=== PATIENT | male | born 1935 | race Caucasian/White ===

== ENCOUNTER 2016-09-10 04:23 | Emergency (ER) | payer OTHER, BC ==
[~2016-09-10] VITALS: Ht 170.2 cm; Wt 91.5 kg
[~2016-09-10 04:23] MED LIST: ALPHAGAN P100 DROP/1 LEFT EYE; CALCIUM500 M4 PO; LIPITOR20 MG PO; LISINOPRIL10 MG PO; OSTEO BI-FLEX1 EAC3 PO; TRAMADOL HCL50 MG PO; VITAMIN D400 UNI1 PO; WARFARIN SODIUM4 MG PO; XALATAN2.5 ML BOTH EYES
[2016-09-10 05:33] LABS: MCH 31.6 PG (29.0-34.0); MCV 92.7 FL (86-99); MEAN PLAT.VOLUME 9.8 uM^3 (9.0-12.4); PLATELET COUNT 159 K/uL (156-360); RBC DIS.WIDTH-CV 12.9 % (11.8-14.6); RBC DIS.WIDTH-SD 43.9 % (39-53); RED BLOOD COUNT 4.53 M/uL (4.00-5.50); WHITE BLOOD COUNT 7.7 K/uL (4.1-10.2)
[2016-09-10 05:37] LABS: INTER. NORMALIZED RATIO 2.2; PROTHROMBIN TIME 22.6 (9.2-11.2)
[2016-09-10 06:17] VITALS: BP 137/83
== END 2016-09-10 06:17 | disposition home or self-care (01) ==
LOC: EME → EDBD 04:23 → EME 06:17
PROVIDERS: Physician Assistant
PROC: 2Y41X5Z Packing of Nasal Region using Packing Material (ICD-10-PCS; principal; 2016-09-10)
DX: R04.0 Epistaxis (principal); I10 Essential (primary) hypertension; Z79.01 Long term (current) use of anticoagulants; F32.9 Major depressive disorder, single episode, unspecified; Z87.891 Personal history of nicotine dependence; Z88.2 Allergy status to sulfonamides; Z88.8 Allergy status to other drugs, medicaments and biological substances
CPT/HCPCS: 85027; 85610; 99281; 99283

== ENCOUNTER 2016-11-24 19:18 | Inpatient (IN) | payer OTHER, BC ==
[~2016-11-24] VITALS: Ht 170.2 cm; Wt 92.6 kg
[~2016-11-24 19:18] MED LIST changes: -LISINOPRIL10 MG PO; +LISINOPRIL5 MG PO; -VITAMIN D400 UNI1 PO; +VITAMIN D400 UNIT PO
[2016-11-24 20:22] LABS: BASOPHIL COUNT 0.1 K/uL (0-0.1); EOSINOPHIL (%) 0.7 % (0-5); EOSINOPHIL COUNT 0.1 K/uL (0-0.3); HEMATOCRIT 41.9 % (38.0-50.0); IMMATURE GRANULOCYTE (%) 0.3 % (0.0-0.7); INSTRUMENT ABS NEUTROPHIL CT 10.6 K/uL; LYMPHOCYTE COUNT 0.8 K/uL (1.0-2.8); MCH 31.8 PG (29.0-34.0); MCHC 34.1 G/DL (30.0-36.0); MCV 93.3 FL (86-99); MEAN PLAT.VOLUME 9.7 uM^3 (9.0-12.4); MONOCYTE (%) 6.1 % (3-12); MONOCYTE COUNT 0.8 K/uL (0-0.8); NEUTROPHIL (%) 86.1 % (45-76); NEUTROPHIL COUNT 10.6 K/uL (1.8-6.4); PLATELET COUNT 169 K/uL (156-360); RBC DIS.WIDTH-CV 12.3 % (11.8-14.6); RBC DIS.WIDTH-SD 42.5 % (39-53); RED BLOOD COUNT 4.49 M/uL (4.00-5.50); WHITE BLOOD COUNT 12.3 K/uL (4.1-10.2)
[2016-11-24 20:30] LABS: INTER. NORMALIZED RATIO 2.8; PROTHROMBIN TIME 31.6 SEC (10.2-12.9)
[2016-11-24 20:33] LABS: CHLORIDE 100 mEq/L (99-109); POTASSIUM 4.3 mEq/L (3.7-5.4); SODIUM 138 mEq/L (136-147)
[2016-11-24 20:35] LABS: GLUCOSE 199 mg/dL (70-99)
[2016-11-24 20:36] LABS: ANION GAP 11 MEQ/L (2-14)
[2016-11-24 20:37] LABS: TOTAL BILIRUBIN 0.4 mg/dL (0.0-1.0)
[2016-11-24 20:38] LABS: ALKALINE PHOSPHATASE 58 IU/L (3-129)
[2016-11-24 20:39] LABS: GFR ESTIMATE (CALCULATED) > 59 mL/min/
[2016-11-24 20:40] LABS: UREA NITROGEN (BUN) 19 mg/dL (9-23)
[2016-11-24] MEDS ORDERED: FISH OIL 1,0001 EAC7 PO (22:08)
[2016-11-24] MEDS ORDERED: OSTEO BI-FLEX1 EAC2 PO (22:08)
[2016-11-25] VITALS (7 sets, daily range): BP systolic 124–165; BP diastolic 63–87
[2016-11-25 07:17] LABS: Estimated Average Glucose 108 mg/dL (70-123); HEMOGLOBIN A1c (GLYCOHEMOGLOB) 5.4 % HGB (Below 5.7)
[2016-11-25 08:28] LABS: HEMATOCRIT 39.8 % (38.0-50.0); MCV 94.5 FL (86-99)
[2016-11-25 12:08] LABS: POINT-OF-CARE METER ID UU14188577
[2016-11-25 14:19] LABS: HEMATOCRIT 40.9 % (38.0-50.0); MCV 94.2 FL (86-99)
[2016-11-25 17:01] LABS: POINT-OF-CARE METER ID UU14188577
[2016-11-25 19:43] LABS: HEMATOCRIT 41.7 % (38.0-50.0); MCV 93.9 FL (86-99)
[2016-11-26 03:40] VITALS: BP 164/83
[2016-11-26 06:52] LABS: HEMATOCRIT 44.6 % (38.0-50.0); MCH 31.8 PG (29.0-34.0); MCHC 33.9 G/DL (30.0-36.0); MCV 93.9 FL (86-99); PLATELET COUNT 168 K/uL (156-360); RBC DIS.WIDTH-CV 12.4 % (11.8-14.6); RBC DIS.WIDTH-SD 43.2 % (39-53); RED BLOOD COUNT 4.75 M/uL (4.00-5.50); WHITE BLOOD COUNT 8.3 K/uL (4.1-10.2)
[2016-11-26 07:01] LABS: INTER. NORMALIZED RATIO 1.9; PROTHROMBIN TIME 20.9 SEC (10.2-12.9)
[2016-11-26 07:10] VITALS: BP 145/71
[2016-11-26 07:21] LABS: ANION GAP 9 MEQ/L (2-14); CHLORIDE 106 MEQ/L (99-109); GFR ESTIMATE (CALCULATED) > 59 mL/min/; POTASSIUM 4.1 MEQ/L (3.7-5.4); SAMPLE HEMOLYSIS CHECK 0; SAMPLE ICTERIC CHECK 0; SAMPLE LIPEMIA CHECK 0; SODIUM 140 MEQ/L (136-147); UREA NITROGEN (BUN) 9 mg/dL (9-23)
[2016-11-26 07:24] LABS: GLUCOSE 82 mg/dL (70-99)
[2016-11-26 11:15] VITALS: BP 138/70
[2016-11-26] MEDS ORDERED: NEXIUM40 MG PO (15:09)
== END 2016-11-26 17:45 | disposition home or self-care (01) | DRG 378 ==
LOC: EME 19:18 → EDOF 23:07 → ENRESERV 23:08 → EDOF 11-25 00:17 → 3EAST 11-25 00:17 → EDOF 11-25 00:17 → CANRESERV 11-25 00:18 → ENRESERV 11-25 00:18 → 3EAST 11-25 01:42
PROVIDERS: Emergency Medicine; Hospitalist; Internal Medicine; Physician Assistant
PROC: 0DJ08ZZ Inspection of Upper Intestinal Tract, Via Natural or Artificial Opening Endoscopic (ICD-10-PCS; principal; 2016-11-26)
DX: K29.71 Gastritis, unspecified, with bleeding (principal); K44.9 Diaphragmatic hernia without obstruction or gangrene; R73.9 Hyperglycemia, unspecified; D72.829 Elevated white blood cell count, unspecified; I48.91 Unspecified atrial fibrillation; I48.92 Unspecified atrial flutter; I10 Essential (primary) hypertension; R42 Dizziness and giddiness; E78.5 Hyperlipidemia, unspecified; M10.9 Gout, unspecified; M19.90 Unspecified osteoarthritis, unspecified site; F32.9 Major depressive disorder, single episode, unspecified; E66.9 Obesity, unspecified; Z68.31 Body mass index [BMI] 31.0-31.9, adult; Z95.0 Presence of cardiac pacemaker; Z79.01 Long term (current) use of anticoagulants; Z82.49 Family history of ischemic heart disease and other diseases of the circulatory system; Z86.718 Personal history of other venous thrombosis and embolism; Z87.891 Personal history of nicotine dependence; Z86.711 Personal history of pulmonary embolism
CPT/HCPCS: 80048; 80053; 82948; 83036; 85014; 85018; 85025; 85027; 85610; 90686; 93005; 99281; 99285; C9113; G0378; J7030

== ENCOUNTER 2017-08-21 08:06 | Observation (INO) | payer OTHER, BC ==
[~2017-08-21] VITALS: Ht 170.2 cm; Wt 81.2 kg
[~2017-08-21 08:06] MED LIST changes: +FISH OIL 1,0001 EAC7 PO; +NEXIUM40 MG PO; +OSTEO BI-FLEX1 EAC2 PO
[2017-08-21 08:52] LABS: BASOPHIL (%) 0.7 % (0-1); BASOPHIL COUNT 0.1 K/uL (0-0.1); EOSINOPHIL (%) 2.5 % (0-5); EOSINOPHIL COUNT 0.3 K/uL (0-0.3); HEMATOCRIT 33.4 % (38.0-50.0); HEMOGLOBIN 11.2 G/DL (12.5-16.6); IMMATURE GRANULOCYTE (%) 0.7 % (0.0-0.7); LYMPHOCYTE (%) 7.3 % (15-42); LYMPHOCYTE COUNT 0.8 K/uL (1.0-2.8); MCH 28.9 PG (29.0-34.0); MCHC 33.5 G/DL (30.0-36.0); MCV 86.3 FL (86-99); MONOCYTE (%) 11.6 % (3-12); MONOCYTE COUNT 1.2 K/uL (0-0.8); NEUTROPHIL (%) 77.2 % (45-76); NEUTROPHIL COUNT 8.2 K/uL (1.8-6.4); PLATELET COUNT 287 K/uL (156-360); RBC DIS.WIDTH-CV 14.3 % (11.8-14.6); RBC DIS.WIDTH-SD 44.3 % (39-53); RED BLOOD COUNT 3.87 M/uL (4.00-5.50); WHITE BLOOD COUNT 10.6 K/uL (4.1-10.2)
[2017-08-21 08:58] LABS: INTER. NORMALIZED RATIO 2.7
[2017-08-21 09:01] LABS: PTT 28.2 SEC (25-37)
[2017-08-21 09:03] LABS: CHLORIDE 96 mEq/L (99-109); POTASSIUM 4.4 mEq/L (3.7-5.4); SODIUM 131 mEq/L (136-147)
[2017-08-21 09:04] LABS: GLUCOSE 106 mg/dL (70-99)
[2017-08-21 09:08] LABS: CREATININE 0.9 mg/dL (0.6-1.3); GFR ESTIMATE (CALCULATED) > 59 mL/min/ (58.99-99999)
[2017-08-21 09:09] LABS: UREA NITROGEN (BUN) 22 mg/dL (9-23)
[2017-08-21 09:12] LABS: TROP-I INTERPRETATION NEGATIVE; TROPONIN-I < 0.01 ng/mL (0.0-0.30)
[2017-08-21 11:49] VITALS: BP 119/65
[2017-08-21 13:02] LABS: HDL CHOLESTEROL 31 MG/DL (Desirable>=40); LDL CHOLESTEROL 72 mg/dL (Desirable<100); NON-HDL CHOLESTEROL 82 mg/dL (Desirable<160); TOTAL CHOLESTEROL 113 mg/dL (Desirable<200); TRIGLYCERIDES 52 MG/DL (Normal: <150)
[2017-08-21 16:00] VITALS: BP 100/56
[2017-08-21] MEDS ORDERED: AZELASTINE137 MCG/0. BOTH NARES (16:56)
[2017-08-21] MEDS ORDERED: IPRATROPIUM BRO15 ML BOTH NARES (16:57)
[2017-08-21] MEDS ORDERED: XARELTO15 MG PO (16:58)
[2017-08-21] MEDS ORDERED: CALCIUM600 M1 PO (17:00)
[2017-08-21 19:19] LABS: HEMATOCRIT 32.5 % (38.0-50.0); HEMOGLOBIN 10.6 G/DL (12.5-16.6); MCV 86.2 FL (86-99)
[2017-08-21 19:42] LABS: ALBUMIN 2.9 G/DL (3.2-4.8); ALKALINE PHOSPHATASE 75 IU/L (3-129); ALT (GPT) 16 IU/L (3-49); AST (GOT) 26 IU/L (2-34); CHLORIDE 95 MEQ/L (99-109); GFR ESTIMATE (CALCULATED) > 59 mL/min/ (58.99-99999); GLUCOSE 136 mg/dL (70-99); POTASSIUM 4.3 MEQ/L (3.7-5.4); SODIUM 127 MEQ/L (136-147); TOTAL BILIRUBIN 0.5 MG/DL (0.0-1.0); TOTAL PROTEIN 7.6 G/DL (6.4-8.3); UREA NITROGEN (BUN) 20 mg/dL (9-23)
[2017-08-21 19:53] LABS: PTT 31.2 SEC (25-37)
[2017-08-22 04:52] LABS: HEMATOCRIT 29.8 % (38.0-50.0); HEMOGLOBIN 9.9 G/DL (12.5-16.6); MCH 28.5 PG (29.0-34.0); MCHC 33.2 G/DL (30.0-36.0); MCV 85.9 FL (86-99); PLATELET COUNT 262 K/uL (156-360); RBC DIS.WIDTH-CV 14.3 % (11.8-14.6); RBC DIS.WIDTH-SD 44.9 % (39-53); RED BLOOD COUNT 3.47 M/uL (4.00-5.50)
[2017-08-22 05:27] LABS: CHLORIDE 99 MEQ/L (99-109); CREATININE 0.9 MG/DL (0.6-1.3); GFR ESTIMATE (CALCULATED) > 59 mL/min/ (58.99-99999); GLUCOSE 109 mg/dL (70-99); POTASSIUM 4.2 MEQ/L (3.7-5.4); SODIUM 130 MEQ/L (136-147); UREA NITROGEN (BUN) 17 mg/dL (9-23)
[2017-08-22 10:45] VITALS: BP 104/59
[2017-08-22 15:24] VITALS: BP 103/57
[2017-08-22 19:30] VITALS: BP 98/56
[2017-08-22 23:00] VITALS: BP 99/57
[2017-08-23 07:49] VITALS: BP 114/61
[2017-08-23] MEDS ORDERED: ASPIR-LOW81 MG PO (08:15)
[2017-08-23] MEDS ORDERED: CEFTRIAXONE1 G1 IV (08:15)
[2017-08-23] MEDS ORDERED: PANTOPRAZOLE SO40 MG PO (08:15)
[2017-08-23] MEDS ORDERED: DULERA 100 MCG/13 GM IH (08:15)
[2017-08-23] MEDS ORDERED: SPIRIVA RESPIMAT4 GM IH (08:15)
== END 2017-08-23 09:40 ==
LOC: EME 08:06 → EDOF 10:00 → 4SOUTH 10:00 → CANRESERV 10:01 → ENRESERV 10:01 → 4SOUTH 11:42
PROVIDERS: Emergency Medicine; Internal Medicine; Physician Assistant Medical
DX: G45.9 Transient cerebral ischemic attack, unspecified (principal); J44.0 Chronic obstructive pulmonary disease with (acute) lower respiratory infection; J44.1 Chronic obstructive pulmonary disease with (acute) exacerbation; J18.9 Pneumonia, unspecified organism; R09.02 Hypoxemia; I10 Essential (primary) hypertension; Z86.718 Personal history of other venous thrombosis and embolism; Z86.711 Personal history of pulmonary embolism; C34.11 Malignant neoplasm of upper lobe, right bronchus or lung; C34.12 Malignant neoplasm of upper lobe, left bronchus or lung; E78.5 Hyperlipidemia, unspecified; Z79.01 Long term (current) use of anticoagulants; I48.91 Unspecified atrial fibrillation; I48.92 Unspecified atrial flutter; R00.1 Bradycardia, unspecified; Z95.0 Presence of cardiac pacemaker; D86.9 Sarcoidosis, unspecified; Z87.891 Personal history of nicotine dependence; Z66 Do not resuscitate; Z88.2 Allergy status to sulfonamides; Z88.4 Allergy status to anesthetic agent; Z88.8 Allergy status to other drugs, medicaments and biological substances
CPT/HCPCS: 70450; 70496; 70498; 71045; 71250; 80048; 80053; 80061; 82272; 82948; 83605; 84484; 85014; 85018; 85025; 85027; 85610; 85730; 87040; 87449; 87641; 93005; 93306; 94640; 94640 76; 99281; 99285; G0378; G8978 GP CJ; G8979 GP CH; G8980 CJ; G8987 GO CJ; G8988 CI; G8989 CJ; J0456; J0696; J7030; J8540

== ENCOUNTER 2017-08-22 13:10 | Inpatient (IN) | payer OTHER, BC ==
[~2017-08-22] VITALS: Ht 175.3 cm; Wt 80.0 kg
[~2017-08-22 13:10] MED LIST changes: +AZELASTINE137 MCG/0. BOTH NARES; +CALCIUM600 M1 PO; +IPRATROPIUM BRO15 ML BOTH NARES; +XARELTO15 MG PO
[2017-08-23] MEDS ORDERED: SPIRIVA RESPIMAT4 GM IH (08:15)
[2017-08-23] MEDS ORDERED: PANTOPRAZOLE SO40 MG PO (08:15)
[2017-08-23] MEDS ORDERED: ASPIR-LOW81 MG PO (08:15)
[2017-08-23] MEDS ORDERED: CEFTRIAXONE1 G1 IV (08:15)
[2017-08-23] MEDS ORDERED: DULERA 100 MCG/13 GM IH (08:15)
[2017-08-23 10:06] VITALS: BP 118/58
[2017-08-23 15:49] VITALS: BP 114/60
[2017-08-23 23:10] VITALS: BP 110/57
[2017-08-24 05:49] VITALS: BP 113/68
[2017-08-24 07:00] LABS: HEMATOCRIT 30.7 % (38.0-50.0); HEMOGLOBIN 10.2 G/DL (12.5-16.6); MCH 28.7 PG (29.0-34.0); MCHC 33.2 G/DL (30.0-36.0); MCV 86.5 FL (86-99); PLATELET COUNT 302 K/uL (156-360); RBC DIS.WIDTH-CV 14.3 % (11.8-14.6); RBC DIS.WIDTH-SD 45.1 % (39-53); RED BLOOD COUNT 3.55 M/uL (4.00-5.50); WHITE BLOOD COUNT 15.3 K/uL (4.1-10.2)
[2017-08-24 07:31] LABS: ALBUMIN 2.7 G/DL (3.2-4.8); ALKALINE PHOSPHATASE 73 IU/L (3-129); ALT (GPT) 13 IU/L (3-49); AST (GOT) 20 IU/L (2-34); CHLORIDE 101 MEQ/L (99-109); CREATININE 0.8 MG/DL (0.6-1.3); GFR ESTIMATE (CALCULATED) > 59 mL/min/ (58.99-99999); GLUCOSE 101 mg/dL (70-99); SODIUM 135 MEQ/L (136-147); TOTAL BILIRUBIN 0.4 MG/DL (0.0-1.0); UREA NITROGEN (BUN) 14 mg/dL (9-23)
[2017-08-24 15:24] VITALS: BP 106/56
[2017-08-25 03:56] VITALS: BP 118/84
[2017-08-25 15:15] VITALS: BP 119/67
[2017-08-26 05:09] VITALS: BP 114/66
[2017-08-26 05:38] LABS: BASOPHIL (%) 0.3 % (0-1); EOSINOPHIL (%) 0.4 % (0-5); EOSINOPHIL COUNT 0.1 K/uL (0-0.3); HEMATOCRIT 32.3 % (38.0-50.0); HEMOGLOBIN 10.6 G/DL (12.5-16.6); IMMATURE GRANULOCYTE (%) 0.6 % (0.0-0.7); LYMPHOCYTE (%) 6.9 % (15-42); LYMPHOCYTE COUNT 1.1 K/uL (1.0-2.8); MCH 28.5 PG (29.0-34.0); MCHC 32.8 G/DL (30.0-36.0); MCV 86.8 FL (86-99); MONOCYTE (%) 12.3 % (3-12); NEUTROPHIL (%) 79.5 % (45-76); NEUTROPHIL COUNT 12.6 K/uL (1.8-6.4); PLATELET COUNT 311 K/uL (156-360); RBC DIS.WIDTH-CV 14.5 % (11.8-14.6); RBC DIS.WIDTH-SD 45.5 % (39-53); RED BLOOD COUNT 3.72 M/uL (4.00-5.50); WHITE BLOOD COUNT 15.9 K/uL (4.1-10.2)
[2017-08-26 06:04] LABS: CHLORIDE 102 MEQ/L (99-109); CREATININE 0.7 MG/DL (0.6-1.3); GFR ESTIMATE (CALCULATED) > 59 mL/min/ (58.99-99999); GLUCOSE 98 mg/dL (70-99); SODIUM 135 MEQ/L (136-147); UREA NITROGEN (BUN) 19 mg/dL (9-23)
[2017-08-26 17:17] VITALS: BP 121/65
[2017-08-27 06:05] VITALS: BP 120/65
[2017-08-27 15:26] VITALS: BP 104/61
[2017-08-28 04:57] VITALS: BP 113/63
[2017-08-28 15:58] VITALS: BP 107/64
[2017-08-29 04:51] VITALS: BP 103/63
[2017-08-29 15:37] VITALS: BP 110/58
[2017-08-30 05:23] VITALS: BP 107/57
[2017-08-30 15:35] VITALS: BP 106/63
[2017-08-31 04:22] VITALS: BP 101/56
[2017-08-31 07:37] LABS: HEMATOCRIT 35.4 % (38.0-50.0); HEMOGLOBIN 11.5 G/DL (12.5-16.6); MCH 28.4 PG (29.0-34.0); MCHC 32.5 G/DL (30.0-36.0); MCV 87.4 FL (86-99); PLATELET COUNT 279 K/uL (156-360); RBC DIS.WIDTH-CV 15.3 % (11.8-14.6); RBC DIS.WIDTH-SD 48.4 % (39-53); RED BLOOD COUNT 4.05 M/uL (4.00-5.50); WHITE BLOOD COUNT 13.8 K/uL (4.1-10.2)
[2017-08-31 07:58] LABS: CHLORIDE 96 MEQ/L (99-109); CREATININE 0.9 MG/DL (0.6-1.3); GFR ESTIMATE (CALCULATED) > 59 mL/min/ (58.99-99999); GLUCOSE 84 mg/dL (70-99); POTASSIUM 3.9 MEQ/L (3.7-5.4); SODIUM 131 MEQ/L (136-147); UREA NITROGEN (BUN) 19 mg/dL (9-23)
[2017-08-31 16:00] VITALS: BP 105/65
[2017-09-01 03:31] VITALS: BP 103/61
[2017-09-01 15:53] VITALS: BP 98/56
[2017-09-02 05:53] VITALS: BP 99/62
[2017-09-02 07:04] LABS: BASOPHIL (%) 0.4 % (0-1); BASOPHIL COUNT 0.1 K/uL (0-0.1); EOSINOPHIL (%) 0.9 % (0-5); EOSINOPHIL COUNT 0.1 K/uL (0-0.3); HEMATOCRIT 34.7 % (38.0-50.0); HEMOGLOBIN 11.4 G/DL (12.5-16.6); IMMATURE GRANULOCYTE (%) 0.5 % (0.0-0.7); LYMPHOCYTE (%) 8.3 % (15-42); LYMPHOCYTE COUNT 1.1 K/uL (1.0-2.8); MCH 28.1 PG (29.0-34.0); MCHC 32.9 G/DL (30.0-36.0); MCV 85.5 FL (86-99); MONOCYTE (%) 10.9 % (3-12); MONOCYTE COUNT 1.5 K/uL (0-0.8); NEUTROPHIL COUNT 10.9 K/uL (1.8-6.4); PLATELET COUNT 254 K/uL (156-360); RBC DIS.WIDTH-CV 15.2 % (11.8-14.6); RBC DIS.WIDTH-SD 47.4 % (39-53); RED BLOOD COUNT 4.06 M/uL (4.00-5.50); WHITE BLOOD COUNT 13.7 K/uL (4.1-10.2)
[2017-09-02 07:35] LABS: CHLORIDE 99 MEQ/L (99-109); CREATININE 0.8 MG/DL (0.6-1.3); GFR ESTIMATE (CALCULATED) > 59 mL/min/ (58.99-99999); GLUCOSE 85 mg/dL (70-99); POTASSIUM 4.2 MEQ/L (3.7-5.4); SODIUM 131 MEQ/L (136-147); UREA NITROGEN (BUN) 23 mg/dL (9-23)
[2017-09-02] MEDS ORDERED: XARELTO15 MG PO (10:31)
[2017-09-02] MEDS ORDERED: DECADRON1 MG PO (10:31)
[2017-09-02] MEDS ORDERED: XARELTO20 MG PO (10:31)
== END 2017-09-02 13:35 | disposition home health service (06) | DRG 945 ==
LOC: 3WEST 13:10
PROVIDERS: Family Medicine Sports Medicine; Physical Medicine & Rehabilitation Pain Medicine
PROC: F07M0ZZ Range of Motion and Joint Mobility Treatment of Musculoskeletal System - Whole Body (ICD-10-PCS; principal; 2017-08-23)
DX: R53.1 Weakness (principal); R26.2 Difficulty in walking, not elsewhere classified; C34.10 Malignant neoplasm of upper lobe, unspecified bronchus or lung; I10 Essential (primary) hypertension; E78.5 Hyperlipidemia, unspecified; J44.1 Chronic obstructive pulmonary disease with (acute) exacerbation; D64.9 Anemia, unspecified; R47.1 Dysarthria and anarthria; D72.829 Elevated white blood cell count, unspecified; I48.91 Unspecified atrial fibrillation; K59.00 Constipation, unspecified; H40.9 Unspecified glaucoma; E83.51 Hypocalcemia; J90 Pleural effusion, not elsewhere classified; E87.1 Hypo-osmolality and hyponatremia; Z95.0 Presence of cardiac pacemaker; Z86.73 Personal history of transient ischemic attack (TIA), and cerebral infarction without residual deficits; Z86.718 Personal history of other venous thrombosis and embolism; Z88.8 Allergy status to other drugs, medicaments and biological substances; Z87.891 Personal history of nicotine dependence; Z88.2 Allergy status to sulfonamides; Z86.711 Personal history of pulmonary embolism
CPT/HCPCS: 71046; 80048; 80053; 85025; 85027; 94640; 94640 76; 97110 GO; 97112 GO; 97530 GP; 99202; G0515 GO; J8540

== ENCOUNTER 2017-09-16 15:48 | Inpatient (IN) | payer OTHER, BC ==
[~2017-09-16] VITALS: Ht 170.2 cm; Wt 84.6 kg
[~2017-09-16 15:48] MED LIST changes: +ASPIR-LOW81 MG PO; +CEFTRIAXONE1 G1 IV; +DECADRON1 MG PO; +DULERA 100 MCG/13 GM IH; +PANTOPRAZOLE SO40 MG PO; +SPIRIVA RESPIMAT4 GM IH; +XARELTO20 MG PO
[2017-09-16 16:30] LABS: HEMATOCRIT 31.8 % (38.0-50.0); HEMOGLOBIN 10.8 G/DL (12.5-16.6); MCH 29.4 PG (29.0-34.0); MCV 86.6 FL (86-99); RBC DIS.WIDTH-CV 16.3 % (11.8-14.6); RED BLOOD COUNT 3.67 M/uL (4.00-5.50); WHITE BLOOD COUNT 20.5 K/uL (4.1-10.2)
[2017-09-16 16:34] LABS: AMYLASE 68 IU/L (1-118)
[2017-09-16 16:35] LABS: CHLORIDE 94 mEq/L (99-109); POTASSIUM 4.6 mEq/L (3.7-5.4); SODIUM 130 mEq/L (136-147)
[2017-09-16 16:36] LABS: GLUCOSE 92 mg/dL (70-99)
[2017-09-16 16:39] LABS: SERUM ETHYL ALCOHOL < 10 mg/dL
[2017-09-16 16:40] LABS: CREATININE 0.9 mg/dL (0.6-1.3); GFR ESTIMATE (CALCULATED) > 59 mL/min/ (58.99-99999)
[2017-09-16 16:41] LABS: UREA NITROGEN (BUN) 32 mg/dL (9-23)
[2017-09-16 16:43] LABS: LIPASE 13 U/L (1.0-51.0)
[2017-09-16 17:13] LABS: APPEARANCE CLEAR ((CLEAR)); BILIRUBIN NEGATIVE; BLOOD NEGATIVE; COLOR YELLOW ((YELLOW)); GLUCOSE (STRIP) NEGATIVE; KETONES NEGATIVE; LEUKOCYTES NEGATIVE; NITRITE NEGATIVE; PROTEIN (STRIP) NEGATIVE; SPECIFIC GRAVITY 1.016 (1.000-1.030); UCUL ADDED? NO; UROBILINOGEN 0.2 MG/DL (0.2-1.0)
[2017-09-16 17:21] LABS: ABS NEUTROPHIL COUNT 19.4; ANISOCYTOSIS NONE SEEN; ATYPICAL LYMPHOCYTE 0.9 %; BAND NEUTROPHILS 30.6 % (0-8.0); BURR CELLS 2+; EOSINOPHIL ABS CT 0; LYMPHOCYTES 1.7 % (15.0-45.0); MONOCYTES 2.6 % (0-9.0); PLAT.SUFFICIENCY DECREASED; POIKILOCYTOSIS 2+; SEG.NEUTROPHILS 64.2 % (46.0-76.0); TOXIC GRANULATION 1+
[2017-09-16 17:25] LABS: PLATELET COUNT 85 K/uL (156-360)
[2017-09-16 17:41] LABS: AMPHETAMINE NEGATIVE (500 ng/mL); BARBITURATES NEGATIVE (200 ng/mL); BENZODIAZEPINES NEGATIVE (150 ng/mL); BUPRENORPHINE NEGATIVE (10 ng/mL); COCAINE NEGATIVE (150 ng/mL); METHADONE NEGATIVE (200 ng/mL); METHAMPHETAMINE NEGATIVE (500 ng/mL); OPIATES (MORPHINE) NEGATIVE (100 ng/mL); OXYCODONE NEGATIVE (100 ng/mL); PHENCYCLIDINE NEGATIVE (25 ng/mL); PROPOXYPHENE NEGATIVE (300 ng/mL); THC CANNABINOIDS NEGATIVE (50 ng/mL); TRICYCLIC ANTIDEPRESSANTS NEGATIVE (300 ng/mL)
[2017-09-16] MEDS ORDERED: XARELTO20 MG PO (18:48)
[2017-09-16] MEDS ORDERED: OMEGA-3100 MG PO (18:49)
[2017-09-16] MEDS ORDERED: ADULT LOW DOSE81 M1 PO (18:50)
[2017-09-16] MEDS ORDERED: ALPHAGAN P100 DROP/5 LEFT EYE (18:51)
[2017-09-16] MEDS ORDERED: PROTONIX40 MG PO (18:52)
[2017-09-16] MEDS ORDERED: VITAMIN D-3 401 EACH PO (18:53)
[2017-09-16 20:16] VITALS: BP 117/57
[2017-09-16 23:48] VITALS: BP 86/53
[2017-09-17 04:25] VITALS: BP 106/59
[2017-09-17 05:54] LABS: HEMATOCRIT 28.4 % (38.0-50.0); HEMOGLOBIN 9.5 G/DL (12.5-16.6); MCH 29.1 PG (29.0-34.0); MCHC 33.5 G/DL (30.0-36.0); MCV 87.1 FL (86-99); PLATELET COUNT 71 K/uL (156-360); RBC DIS.WIDTH-CV 16.7 % (11.8-14.6); RBC DIS.WIDTH-SD 52.6 % (39-53); RED BLOOD COUNT 3.26 M/uL (4.00-5.50); WHITE BLOOD COUNT 19.1 K/uL (4.1-10.2)
[2017-09-17 06:48] LABS: CHLORIDE 100 MEQ/L (99-109); CREATININE 0.8 MG/DL (0.6-1.3); GFR ESTIMATE (CALCULATED) > 59 mL/min/ (58.99-99999); GLUCOSE 91 mg/dL (70-99); POTASSIUM 4.5 MEQ/L (3.7-5.4); SODIUM 131 MEQ/L (136-147); UREA NITROGEN (BUN) 29 mg/dL (9-23)
[2017-09-17 07:35] VITALS: BP 108/57
[2017-09-17 11:38] VITALS: BP 87/52
[2017-09-17 11:45] VITALS: BP 82/54
[2017-09-17 12:28] VITALS: BP 100/57
[2017-09-17 19:00] VITALS: BP 107/53
[2017-09-18] VITALS (7 sets, daily range): BP systolic 111–130; BP diastolic 56–66
[2017-09-18 05:27] LABS: HEMATOCRIT 27.3 % (38.0-50.0); HEMOGLOBIN 9.1 G/DL (12.5-16.6); MCHC 33.3 G/DL (30.0-36.0); MCV 86.9 FL (86-99); PLATELET COUNT 60 K/uL (156-360); RBC DIS.WIDTH-CV 16.5 % (11.8-14.6); RBC DIS.WIDTH-SD 52.3 % (39-53); RED BLOOD COUNT 3.14 M/uL (4.00-5.50); WHITE BLOOD COUNT 23.6 K/uL (4.1-10.2)
[2017-09-18 06:11] LABS: CHLORIDE 103 MEQ/L (99-109); CREATININE 0.7 MG/DL (0.6-1.3); GFR ESTIMATE (CALCULATED) > 59 mL/min/ (58.99-99999); POTASSIUM 4.3 MEQ/L (3.7-5.4); SODIUM 133 MEQ/L (136-147); UREA NITROGEN (BUN) 19 mg/dL (9-23)
[2017-09-18 06:18] LABS: GLUCOSE 168 mg/dL (70-99)
[2017-09-19 04:13] VITALS: BP 130/68
[2017-09-19 05:24] LABS: HEMATOCRIT 25.1 % (38.0-50.0); HEMOGLOBIN 8.4 G/DL (12.5-16.6); MCH 29.2 PG (29.0-34.0); MCHC 33.5 G/DL (30.0-36.0); MCV 87.2 FL (86-99); PLATELET COUNT 54 K/uL (156-360); RBC DIS.WIDTH-CV 16.6 % (11.8-14.6); RBC DIS.WIDTH-SD 52.6 % (39-53); RED BLOOD COUNT 2.88 M/uL (4.00-5.50); WHITE BLOOD COUNT 29.9 K/uL (4.1-10.2)
[2017-09-19 06:54] LABS: ABS NEUTROPHIL COUNT 28.5; ANISOCYTOSIS 1+; BAND NEUTROPHILS 11.7 % (0-8.0); BURR CELLS 1+; EOSINOPHIL ABS CT 0; LYMPHOCYTES 0.4 % (15.0-45.0); MONOCYTES 4.4 % (0-9.0); PLAT.SUFFICIENCY INCREASED; POIKILOCYTOSIS 1+; SEG.NEUTROPHILS 83.5 % (46.0-76.0)
[2017-09-19 08:12] VITALS: BP 143/72
[2017-09-19 12:08] LABS: ALBUMIN 2.5 G/DL (3.2-4.8); ALKALINE PHOSPHATASE 181 IU/L (3-129); ALT (GPT) 17 IU/L (3-49); AST (GOT) 27 IU/L (2-34); CHLORIDE 101 MEQ/L (99-109); CREATININE 0.7 MG/DL (0.6-1.3); GFR ESTIMATE (CALCULATED) > 59 mL/min/ (58.99-99999); GLUCOSE 192 mg/dL (70-99); MAGNESIUM 1.8 mg/dl (1.3-2.7); POTASSIUM 3.9 MEQ/L (3.7-5.4); SODIUM 131 MEQ/L (136-147); TOTAL BILIRUBIN 0.4 MG/DL (0.0-1.0); TOTAL PROTEIN 6.4 G/DL (6.4-8.3); UREA NITROGEN (BUN) 18 mg/dL (9-23)
[2017-09-19 12:35] VITALS: BP 121/60
[2017-09-19 17:16] VITALS: BP 141/81
[2017-09-19 19:39] VITALS: BP 127/72
[2017-09-20] VITALS (8 sets, daily range): BP systolic 132–189; BP diastolic 73–93
[2017-09-20 00:36] LABS: HEMATOCRIT 25.5 % (38.0-50.0); HEMOGLOBIN 8.7 G/DL (12.5-16.6); MCH 29.5 PG (29.0-34.0); MCHC 34.1 G/DL (30.0-36.0); MCV 86.4 FL (86-99); PLATELET COUNT 58 K/uL (156-360); RBC DIS.WIDTH-CV 16.4 % (11.8-14.6); RBC DIS.WIDTH-SD 51.5 % (39-53); RED BLOOD COUNT 2.95 M/uL (4.00-5.50); WHITE BLOOD COUNT 26.8 K/uL (4.1-10.2)
[2017-09-20 06:11] LABS: HEMATOCRIT 30.1 % (38.0-50.0); MCHC 33.2 G/DL (30.0-36.0); MCV 87.2 FL (86-99); PLATELET COUNT 75 K/uL (156-360); RBC DIS.WIDTH-CV 16.7 % (11.8-14.6); RBC DIS.WIDTH-SD 52.4 % (39-53); RED BLOOD COUNT 3.45 M/uL (4.00-5.50)
[2017-09-20 06:13] LABS: CHLORIDE 99 MEQ/L (99-109); CREATININE 0.6 MG/DL (0.6-1.3); GFR ESTIMATE (CALCULATED) > 59 mL/min/ (58.99-99999); GLUCOSE 134 mg/dL (70-99); SODIUM 133 MEQ/L (136-147); UREA NITROGEN (BUN) 19 mg/dL (9-23)
[2017-09-20 06:15] LABS: WHITE BLOOD COUNT 31.5 K/uL (4.1-10.2)
[2017-09-20 06:48] LABS: ABS NEUTROPHIL COUNT 29.9; ANISOCYTOSIS 1+; BAND NEUTROPHILS 9.2 % (0-8.0); EOSINOPHIL ABS CT 0; MONOCYTES 5.2 % (0-9.0); SEG.NEUTROPHILS 85.6 % (46.0-76.0)
[2017-09-21] VITALS (8 sets, daily range): BP systolic 126–168; BP diastolic 60–84
[2017-09-21 01:58] LABS: MCV 86.3 FL (86-99)
[2017-09-21 02:09] LABS: CHLORIDE 100 mEq/L (99-109); SODIUM 134 mEq/L (136-147)
[2017-09-21 02:10] LABS: GLUCOSE 145 mg/dL (70-99)
[2017-09-21 02:12] LABS: POTASSIUM 5.1 mEq/L (3.7-5.4)
[2017-09-21 02:14] LABS: CREATININE 0.8 mg/dL (0.6-1.3); GFR ESTIMATE (CALCULATED) > 59 mL/min/ (58.99-99999)
[2017-09-21 02:15] LABS: UREA NITROGEN (BUN) 25 mg/dL (9-23)
[2017-09-21 08:48] LABS: HEMATOCRIT 27.9 % (38.0-50.0); HEMOGLOBIN 9.4 G/DL (12.5-16.6); MCV 87.2 FL (86-99)
[2017-09-21 15:47] LABS: HEMATOCRIT 28.7 % (38.0-50.0); HEMOGLOBIN 9.5 G/DL (12.5-16.6); MCV 88.9 FL (86-99)
[2017-09-22] VITALS (7 sets, daily range): BP systolic 158–205; BP diastolic 80–98
[2017-09-22 00:51] LABS: HEMATOCRIT 25.8 % (38.0-50.0); HEMOGLOBIN 8.9 G/DL (12.5-16.6); MCV 85.7 FL (86-99)
[2017-09-23 03:04] VITALS: BP 175/101
[2017-09-23 06:50] VITALS: BP 143/88
== END 2017-09-23 10:50 | DRG 871 ==
LOC: TRA 15:48 → EDOF 18:14 → ENRESERV 18:19 → 4SOUTH 19:58 → ENRESERV 09-20 07:20 → 5EAST 09-20 12:54
PROVIDERS: Emergency Medicine; Hospitalist; Internal Medicine; Physician Assistant
DX: A41.9 Sepsis, unspecified organism (principal); J96.01 Acute respiratory failure with hypoxia; J81.1 Chronic pulmonary edema; J90 Pleural effusion, not elsewhere classified; J18.9 Pneumonia, unspecified organism; I48.91 Unspecified atrial fibrillation; D69.59 Other secondary thrombocytopenia; J44.1 Chronic obstructive pulmonary disease with (acute) exacerbation; J84.10 Pulmonary fibrosis, unspecified; J44.0 Chronic obstructive pulmonary disease with (acute) lower respiratory infection; E87.1 Hypo-osmolality and hyponatremia; C34.10 Malignant neoplasm of upper lobe, unspecified bronchus or lung; I10 Essential (primary) hypertension; E78.5 Hyperlipidemia, unspecified; D64.9 Anemia, unspecified; Y95 Nosocomial condition; Z51.5 Encounter for palliative care; Z66 Do not resuscitate; Z79.01 Long term (current) use of anticoagulants; Z95.0 Presence of cardiac pacemaker; Z86.718 Personal history of other venous thrombosis and embolism; Z86.73 Personal history of transient ischemic attack (TIA), and cerebral infarction without residual deficits; Z87.891 Personal history of nicotine dependence; T45.1X5A Adverse effect of antineoplastic and immunosuppressive drugs, initial encounter; K59.00 Constipation, unspecified; Z86.711 Personal history of pulmonary embolism; R29.6 Repeated falls; F41.9 Anxiety disorder, unspecified; R62.7 Adult failure to thrive; T38.0X5A Adverse effect of glucocorticoids and synthetic analogues, initial encounter
CPT/HCPCS: 70450; 71045; 71100; 71101; 71250; 80048; 80053; 80202; 81003; 82150; 83605; 83690; 83735; 84145 90; 85014; 85018; 85025; 85027; 86850; 86900; 86901; 86920; 87040; 93005; 94640; 94799; 97530 GP; 99281; 99285; C9113; G0378; G0480; J0456; J0692; J1100; J1940; J2060; J2270; J3370; J7030; J8540